=== PATIENT | female | born 1955 | race African-American/Black ===

== ENCOUNTER 2024-09-28 16:55 | Inpatient (IN) | payer OTHER ==
[2024-09-28 18:02] LABS: Absolute Eosinophils 0.1 K/uL (0-0.5); Absolute Lymphocytes (CBC) 2.2 K/uL (0.7-4.9); Absolute Monocytes 0.3 K/uL (0.1-1.3); Absolute Neutrophil 2.7 K/uL (1.8-8.0); Basophils % 0.8 % (0-1.3); Eosinophils % 1.8 % (0-4.4); Hematocrit 32.7 % (36.0-45.0); Hemoglobin 11.1 g/dL (12.0-15.0); MCH 28.6 pg (27.0-35.0); MCHC 33.9 g/dL (32.0-36.0); MCV 84.4 fL (80-100); Neutrophils % 51.4 % (41.7-73.7); Nucleated Red Blood Cells % 0.2 % (0-0); Platelets 209 thou/uL (152-406); RBC Red Blood Cell Count 3.87 M/uL (3.86-4.86); Red Cell Distribution Width 15.3 % (12.1-15.2)
[2024-09-28 18:23] LABS: Anion Gap 11.7 mEq/L (5.0-15.0); Magnesium 2.3 mg/dL (1.6-2.4); Potassium 5.7 mEq/L (3.5-5.1); Troponin High Sensitivity 18.3 pg/mL (<58.9)
--- NOTE | 2024-09-28 18:31 | ER ---
Nurse's Notes [facility] Name: Katie Loo Age: 69 yrs Sex: Female : 1955 Arrival Date: 09/28/2024 Time: 16:55 Bed 24 Private MD: Diagnosis: Hyperkalemia Presentation: 09/28 17:27 Chief complaint: Patient states: was told her potassium level was high, had blood drawn iw yesterday morning, sees Dr. Mae. Coronavirus screen: At this time, the client does not indicate any symptoms associated with coronavirus-19. Ebola Screen: No symptoms or risks identified at this time. Initial Sepsis Screen: Does the patient meet any 2 criteria? No. Patient's initial sepsis screen is negative. Does the patient have a suspected source of infection? No. Patient's initial sepsis screen is negative. Risk Assessment: Do you want to hurt yourself or someone else? Patient reports no desire to harm self or others. Onset of symptoms was September 28, 2024. 17:27 Method Of Arrival: Ambulatory iw 17:27 Acuity: YULIANA 3 iw Historical: - Allergies: 17:28 No Known Allergies; iw - PMHx: 17:28 Kidney disease; Hypertensive disorder; Diabetes mellitus; iw - PSHx: 17:28 None; iw - Immunization history:: Adult Immunizations up to date. - Infectious Disease History:: Denies. - Social history:: Smoking status: Patient denies any tobacco usage or history of. Screenin:44 [facility] ED Fall Risk Assessment (Adult) History of falling in the last 3 months, me1 including since admission No falls in past 3 months (0 pts) Confusion or Disorientation No (0 pts) Intoxicated or Sedated No (0 pts) Impaired Gait No (0 pts) Mobility Assist Device Used No (0 pt) Altered Elimination No (0 pt) Score/Fall Risk Level 0 - 2 = Low Risk Maintained a safe environment, Provided non-skid footwear, Hourly rounding (assess needs \T\ fall precautionary measures) done. Abuse screen: Denies threats or abuse. Nutritional screening: No deficits noted. Tuberculosis screening: No symptoms or risk factors identified. Assessment: 17:44 General: Appears in no apparent distress. well groomed, well developed, well nourished, me1 Behavior is calm, cooperative, appropriate for age, Reports was told her potassium level was high, had blood drawn yesterday morning, sees Dr. Mae. Pain: Denies pain. Neuro: Level of Consciousness is awake, alert, obeys commands, Oriented to person, place, time, situation, Appropriate for age. Cardiovascular: Patient's skin is warm and dry. Respiratory: Airway is patent Respiratory effort is even, unlabored, Respiratory pattern is regular, symmetrical. GI: No signs and/or symptoms were reported involving the gastrointestinal system. : No signs and/or symptoms were reported regarding the genitourinary system. EENT: No signs and/or symptoms were reported regarding the EENT system. Derm: Skin is intact, is healthy with good turgor, Skin is pink, warm \T\ dry. Musculoskeletal: No signs and/or symptoms reported regarding the musculoskeletal system. Vital Signs: 17:27 BP 134 / 63; Pulse 47; Resp 19; Temp 98; Pulse Ox 100% on R/A; Weight 74.84 kg; Height iw 5 ft. 4 in. ; Pain 0/10; 18:00 BP 122 / 55; Pulse 44; Resp 14; Pulse Ox 100% ; me1 19:00 BP 121 / 50; Pulse 47; Resp 16; Pulse Ox 100% ; me1 20:00 BP 125 / 55; Pulse 48; Resp 16; Pulse Ox 100% ; me1 20:57 BP 119 / 47; Pulse 49; Resp 15; Pulse Ox 100% ; me1 22:00 BP 121 / 51; Pulse 54; Resp 16; Pulse Ox 100% ; me1 17:27 Body Mass Index 28.32 (74.84 kg, 162.56 cm) iw 17:27 Pain Scale: Adult iw ED Course: 17:03 Patient arrived in ED. mr 17:23 An Davenport PA-C is PHCP. sb4 17:23 Ankush Warner MD is Attending Physician. sb4 17:28 Triage completed. iw 17:29 Arm band placed on. iw 17:33 Alondra Sweeney, ABEBE is Primary Nurse. me1 17:43 EKG done, by ED staff, reviewed by An Davenport PA-C. me1 17:44 Patient has correct armband on for positive identification. Bed in low position. Call me1 light in reach. Side rails up X2. Provided Education on: POC. Verbalized understanding.. Client placed on continuous cardiac and pulse oximetry monitoring. NIBP monitoring applied. monitor worker on. Pulse ox on. NIBP on. 17:44 No provider procedures requiring assistance completed. me1 17:54 Basic Metabolic Panel Sent. me1 17:54 Magnesium Sent. me1 17:55 CBC with Diff Sent. me1 17:55 Troponin HS Sent. me1 17:55 Initial lab(s) drawn, by me, sent to lab. Inserted saline lock: 22 gauge in right me1 antecubital area, using aseptic technique. 18:30 Nishant Roberto MD is Hospitalizing Provider. sb4 21:53 Patient admitted, IV remains in place. me1 Administered Medications: 18:57 Drug: NS 0.9% IV 1000 ml IV at 1 bolus Per protocol; to be given as a bolus over 60 me1 minutes Route: IV; Rate: 1 bolus; Site: right antecubital; 20:57 Follow up: Response: No adverse reaction; IV Status: Completed infusion; IV Intake: me1 1000ml 18:57 Drug: Calcium Gluconate IVPB 1 grams IVPB once over 60 mins; (mix in NS 100 mL) Route: me1 IVPB; Infused Over: 60 mins; Site: right antecubital; 19:38 Follow up: Response: No adverse reaction; IV Status: Completed infusion; IV Intake: [id number] 18:57 Drug: D50W IVP 50 ml IVP once; (1 amp) Route: IVP; Site: right antecubital; me1 19:23 Follow up: Response: No adverse reaction me1 18:57 Drug: Albuterol Inhalation 2.5 mg Inhalation once Route: Inhalation; me1 19:22 Follow up: Response: No adverse reaction me1 18:57 Drug: Kayexalate PO 30 grams PO once Route: PO; me1 19:23 Follow up: Response: No adverse reaction me1 18:58 Drug: Insulin Regular Human IVP 10 units IVP once {Co-Signature: me1 (ernesto Sweeney RN).} Route: IVP; Site: right antecubital; 19:22 Follow up: Response: No adverse reaction me1 Medication: 17:44 VIS not applicable for this client. me1 Intake: 19:38 IV: 50ml; Total: 50ml. me1 20:57 IV: 1000ml; Total: 1050ml. me1 Outcome: 18:30 Decision to Hospitalize by Provider. sb4 21:53 Admitted to ER Hold. Please see [facility] for further documentation. me1 21:53 Condition: stable 21:53 Instructed on the need for admit, 09/29 10:43 Patient left the ED. iw Signatures: Katie Márquez, Reg Reg mr Jesusita Stein RN RN Tennille Gaytan RN RN An Godinez, PA-C PA-C sb4 Alondra Sweeney RN RN me1 Alondra Sweeney RN me1 Corrections: (The following items were deleted from the chart) 09/28 17:44 17:27 Chief complaint: Patient states: was told her potassium level was high, had blood me1 drawn yesterday morning, sees Dr. Mae iw
--- NOTE | 2024-09-28 18:31 | EDPHYS ---
Physician Documentation [facility] Name: Katie Loo Age: 69 yrs Sex: Female : 1955 Arrival Date: 09/28/2024 Time: 16:55 Bed 24 Private MD: ED Physician Ankush Warner HPI: 09/28 18:34 This 69 yrs old Black Female presents to ER via Ambulatory with complaints of Abnormal sb4 Lab Results. 18:34 Patient states that she had outpatient labs done yesterday and was called today stating sb4 that she had elevated potassium levels and go to the ED. She is not sure what the levels were. She denies any history of hyperkalemia. States that she does have CKD and sees Dr. Mae. Denies any chest pain or any symptoms of discomfort at this time. Historical: - Allergies: 17:28 No Known Allergies; iw - PMHx: 17:28 Kidney disease; Hypertensive disorder; Diabetes mellitus; iw - PSHx: 17:28 None; iw - Immunization history:: Adult Immunizations up to date. - Infectious Disease History:: Denies. - Social history:: Smoking status: Patient denies any tobacco usage or history of. ROS: 18:34 Constitutional: Negative for fever, chills, and weight loss, sb4 18:34 All other systems are negative, Exam: 18:34 Constitutional: This is a well developed, well nourished patient who is awake, alert, sb4 and in no acute distress. Head/Face: Normocephalic, atraumatic. Eyes: Extra-ocular motions intact. Periorbital areas with no swelling, redness, or edema. ENT: Mucous membranes moist. Cardiovascular: Regular rate and rhythm with a normal S1 and S2. Respiratory: No increased work of breathing, no retractions or nasal flaring. Skin: Warm, dry with normal turgor. Normal color with no rashes, no lesions, and no evidence of cellulitis. Vital Signs: 17:27 BP 134 / 63; Pulse 47; Resp 19; Temp 98; Pulse Ox 100% on R/A; Weight 74.84 kg; Height iw 5 ft. 4 in. ; Pain 0/10; 18:00 BP 122 / 55; Pulse 44; Resp 14; Pulse Ox 100% ; me1 19:00 BP 121 / 50; Pulse 47; Resp 16; Pulse Ox 100% ; me1 20:00 BP 125 / 55; Pulse 48; Resp 16; Pulse Ox 100% ; me1 20:57 BP 119 / 47; Pulse 49; Resp 15; Pulse Ox 100% ; me1 22:00 BP 121 / 51; Pulse 54; Resp 16; Pulse Ox 100% ; me1 17:27 Body Mass Index 28.32 (74.84 kg, 162.56 cm) iw 17:27 Pain Scale: Adult iw MDM: 17:27 Medical Screening Exam initiated sb4 18:35 Data reviewed: vital signs, nurses notes, lab test result(s), EKG, radiologic studies, sb4 and as a result, I will admit patient. Consideration of Admission/Observation Patient was admitted/placed on observation. Management of patient was discussed with the following: Hospitalist: Dr. Roberto, Accepts patient to his service. Modular Home Crew Member: Dr. Mae, wants patient admitted for observation. Counseling: I had a detailed discussion with the patient and/or guardian regarding the historical points, exam findings, and any diagnostic results supporting the discharge/admit diagnosis, lab results, the need for further work-up and treatment in the hospital. 09/28 17:42 Order name: Basic Metabolic Panel; Complete Time: 18:25 sb4 09/28 17:42 Order name: CBC with Diff; Complete Time: 18:07 sb4 09/28 17:42 Order name: Troponin HS; Complete Time: 18:25 sb4 09/28 17:42 Order name: Magnesium; Complete Time: 18:25 sb4 09/28 18:47 Order name: Urinalysis w/ reflexes; Complete Time: 22:44 EDMS 09/28 18:47 Order name: Basic Metabolic Panel EDMS 09/28 18:47 Order name: Basic Metabolic Panel; Complete Time: 13:06 EDMS 09/28 18:47 Order name: Magnesium EDNH 09/28 18:47 Order name: Magnesium; Complete Time: 13:06 EDMS 09/28 22:18 Order name: Potassium; Complete Time: 22:19 EDMS 09/28 17:42 Order name: EKG; Complete Time: 17:43 sb4 09/28 18:47 Order name: CONS Physician Consult EDNH 09/28 17:42 Order name: Cardiac monitoring; Complete Time: 17:43 sb4 18 17:42 Order name: EKG - Nurse/Tech; Complete Time: 17:43 sb4 18 17:42 Order name: IV Saline Lock; Complete Time: 17:54 sb4 18 17:42 Order name: Labs collected and sent; Complete Time: 17:54 sb4 18 17:42 Order name: O2 Per Protocol; Complete Time: 17:43 sb4 18 17:42 Order name: O2 Sat Monitoring; Complete Time: 17:43 sb4 EC:58 Rate is 46 beats/min. Rhythm is regular, Sinus bradycardia with PACs. MD interval is sb4 normal at 144 msec. QRS interval is normal at 90 msec. QT interval is normal at 444 msec. No Q waves. T waves are Normal. No ST changes noted. Clinical impression: No evidence of ischemia. Interpreted by me. Reviewed by me. Administered Medications: 18:57 Drug: NS 0.9% IV 1000 ml IV at 1 bolus Per protocol; to be given as a bolus over 60 me1 minutes Route: IV; Rate: 1 bolus; Site: right antecubital; 20:57 Follow up: Response: No adverse reaction; IV Status: Completed infusion; IV Intake: me1 1000ml 18:57 Drug: Calcium Gluconate IVPB 1 grams IVPB once over 60 mins; (mix in NS 100 mL) Route: me1 IVPB; Infused Over: 60 mins; Site: right antecubital; 19:38 Follow up: Response: No adverse reaction; IV Status: Completed infusion; IV Intake: [id number] 18:57 Drug: D50W IVP 50 ml IVP once; (1 amp) Route: IVP; Site: right antecubital; me1 19:23 Follow up: Response: No adverse reaction me1 18:57 Drug: Albuterol Inhalation 2.5 mg Inhalation once Route: Inhalation; me1 19:22 Follow up: Response: No adverse reaction me1 18:57 Drug: Kayexalate PO 30 grams PO once Route: PO; me1 19:23 Follow up: Response: No adverse reaction me1 18:58 Drug: Insulin Regular Human IVP 10 units IVP once {Co-Signature: me1 (ernesto Sweeney RN).} Route: IVP; Site: right antecubital; 19:22 Follow up: Response: No adverse reaction me1 Disposition Summary: 09/28/24 18:30 Hospitalization Ordered Notes: Hospitalization Status: Observation sb4 Provider: Nishant Roberto sb4 Condition: Fair sb4 Problem: new sb4 Symptoms: are unchanged sb4 Bed/Room Type: Standard sb4 Location: Telemetry/MedSurg (observation)(09/29/24 09:42) Room Assignment: [facility](09/29/24 09:42) Diagnosis - Hyperkalemia sb4 Forms: - Medication Reconciliation Form sb4 - SBAR form sb4 - Leadership Thank You Letter sb4 Critical care time excluding procedures: 18:35 Critical care time: Bedside Care: 15 minutes, Consultation: 20 minutes. Total time: 35 sb4 minutes Signatures: Dispatcher [employer] EDMS Luann Young Irene, RN RN Briana Gusman RN RN Cayla Gomez RN RN Tennille Gaytan RN ABEBE Janine Pierre RN RN An Rodriges, PA-C PA-C sb4 Alondra Sweeney, RN RN me1 Alondra Sweeney RN me1 Corrections: (The following items were deleted from the chart) 21:39 18:30 Telemetry/MedSurg (observation) sb4 lg3 21:39 18:30 sb4 lg3 22:24 21:39 [facility] ER HOLD lg3 sp 22:24 21:39 ERHOLD- lg3 sp 22:33 22:24 217 sp cg 22:36 22:24 Telemetry/MedSurg (Inpatient) sp cg 22:36 22:33 cg cg 09/29 09:42 09/28 22:36 [facility] ER HOLD cg ss 09/29 09:42 09/28 22:36 ERHOLD- cg ss
[2024-09-28] MEDS ORDERED: ALBUTEROL 2.5 MG/3 ML NEB SOL ONE (18:39)
[2024-09-28] MEDS ORDERED: CALCIUM GLUCONATE 1 GM IVPB 1 GM/50 ML BAG IV ONE (18:39)
[2024-09-28] MEDS ORDERED: INSULIN REGULAR (HUMAN) 100 UNIT/ML ONE (18:39)
[2024-09-28] MEDS ORDERED: D50W 25 GM/50 ML SYRINGE IV ONE (18:40)
[2024-09-28] MEDS ORDERED: NA CHLORIDE 0.9% 1,000 ML ONE ×2 (18:40→21:22)
[2024-09-28] MEDS ORDERED: SOD POLYSTYREN SUL 15 GM/60 ML UCUP ONE (18:40)
[2024-09-28] MEDS ORDERED: ACETAMINOPHEN 325 MG TABLET PO PRN (18:41)
--- NOTE | 2024-09-28 18:46 | P.HP ---
Certification for Inpatient Patient admitted to: Observation With expected LOS: <2 Midnights Patient will require the following post-hospital care: None Practitioner: I am a practitioner with admitting privileges, knowledge of patient current condition, hospital course, and medical plan of care. 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 she was sent to the ED for eval and was found to have bradycardia and repeat BMP revealed potassium of 5.7 and cr of 2.5. she denies any diarrhea, n/v or other symptoms. she was on Amlodipine, Losartan and spironolactone for outpt management of hypertension. She was also on Farxiga for diabetes management. Home medications list reviewed: Yes Review of Systems 10-point ROS is otherwise unremarkable Physical Examination - Physical Exam General: Alert HEENT: Atraumatic, Normocephalic Neck: Supple Respiratory: Normal air movement Cardiovascular: Regular rate/rhythm Gastrointestinal: Soft and benign Musculoskeletal: No swelling Neurological: Normal speech, Normal strength at 5/5 x4 extr - Studies Laboratory Data (last 24 hrs) 09/28/24 09/28/24 17:53 17:53 WBC 5.30 Hgb 11.1 L Hct 32.7 L Plt Count 209 Sodium 138 Potassium 5.7 H BUN 54 H Creatinine 2.52 H Glucose 109 H Magnesium 2.3 Assessment and Plan - Plan PHUONG: she has use of losartan and spironolactone as possible confounders. she is deemed to be volume deplete. we will continue on NS infusion for hydration and follow labs. Nephrology has been consulted. Hyperkalemia: Potassium is elevated at 5.7. she has received medical management for her hyperkalemia and we think her use of aldactone and losartan is a possible confounder for her hyperkalemia. we will hold losartan and aldactone. we will follow daily labs and continue on telemetry monitoring. Nephrology on board. Hyperkalemia: We will continue amlodipine dose for blood pressure management. DM 2: we will follow blood glucose ACHS. Hyperkalemia: we will continue statin therapy. Prophylaxis: Hepari for DVT prophylaxis. Code status: Full code. Disposition: pending nephrology clearance and resolution of hyperkalemia and PHUONG. Discharge Plan: Home Plan to discharge in: 24 Hours - Advance Directives Does patient have a Living Will: No Does patient have a Durable POA for Healthcare: No - Code Status/Comfort Care Code Status: Full Code
[2024-09-28] MEDS: NA CHLORIDE 0.9% 1,000 ML IV SCH (19:00)
[2024-09-28 20:04] VITALS: BMI 28.3
[2024-09-28] MEDS: SODIUM ZIRCONIUM CYCLOSILICATE 10 GM/PKT PO ONE (21:00)
[2024-09-28] MEDS: SODIUM BICARB 325 MG TAB PO SCH (21:00)
[2024-09-28 22:44] LABS: Specific Gravity 1.014 (1.005-1.030); Urine Bilirubin NEGATIVE (Negative); Urine Blood Negative (Negative); Urine Clarity Clear (Clear); Urine Color Colorless (Yellow); Urine Glucose 3+ (Negative); Urine Ketones NEGATIVE (Negative); Urine Microscopic Reflex YN NO UMIC; Urine Nitrite NEGATIVE (Negative); Urine Protein NEGATIVE (Negative); Urine Urobilinogen Normal (Normal); Urine pH 5.5 (5.0-7.0)
[2024-09-28] MEDS: SODIUM BICARB 325 MG TAB PO ONE (23:30)
[2024-09-29] MEDS ORDERED: HEPARIN 5000 UNIT/ML 1 ML VIAL ONE ×2 (00:47→09:15)
[2024-09-29] MEDS: HEPARIN 5000 UNIT/ML 1 ML VIAL SQ SCH (00:54)
[2024-09-29 05:00] LABS: Anion Gap 10.4 mEq/L (5.0-15.0); Magnesium 2.1 mg/dL (1.6-2.4); Potassium 5.4 mEq/L (3.5-5.1)
[2024-09-29] MEDS: AMLODIPINE 10 MG TAB PO SCH (09:00)
[2024-09-29] MEDS ORDERED: AMLODIPINE 10 MG TAB ONE (09:15)
--- NOTE | 2024-09-29 12:28 | EKG ---
Test Date: 2024-09-28 Test Time: 17:39:12 Practice Business Asst: MEASUREMENT RESULTS: Intervals: Rate: 46 TN: 144 QRSD: 90 QT: 444 QTc: 388 [place]: P: 44 TN: 144 QRS: 27 T: 62 INTERPRETIVE STATEMENTS: Sinus bradycardia with premature atrial complexes Otherwise normal ECG No previous ECG available for comparison Electronically Signed On 09-29-24 12:25:27 CDT by Enoc Rossi
[2024-09-29] MEDS ORDERED: GLUCAGON 1 MG/VIAL IM PRN (12:42)
[2024-09-29] MEDS ORDERED: D10W 125 ML IV PRN (12:42)
[2024-09-29] MEDS: NA CHLORIDE 0.9% 1,000 ML IV SCH (13:14)
--- NOTE | 2024-09-29 15:46 | CON ---
Date of Consultation: 09/29/2024 Reason For Consultation: Elevated BUN and creatinine, hyperkalemia. 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 Followed up with me in the office with valentin mao creatinine 1.8 and GFR of 29. Patient last seen in the office back in June. The patient came on her regular lab for the office for the followup, found to have potassium 6.5 with elevation in cr eatinine 2.5. For that reason, we directed the patient to the hospital. The patient's last admissio n, was started on Farxiga. Apparently, patient still weak for that reason. The patient denied any n ausea, any vomiting, any diarrhea. In the hospital, the patient was started on gentle hydration. Cr eatinine trended down from 2.5 to 2.1. Hyperkalemia started improving. Past Medical History: Include: 1. Diabetes. 2. Complicated with neuropathy and nephropathy. 3. Hypertension. 4. Hyperlipidemia. 5. Chronic kidney disease stage 3B, small-sized kidney, proteinuric, nonnephrotic, secondary to diabe lyndsay and hypertension, nephrosclerosis. Baseline creatinine 1.8 and GFR 29. Family History: Positive for diabetes and kidney disease. Allergies: NO KNOWN DRUGS ALLERGY. Social History: Denied smoking. Denied drinking. Denied drugs abuse. Review of Systems: Head and Neck: No red eye. No ear pain. GI: No nausea. No vomiting. : No polyuria. No dysuria. No hematuria. WASH OPERATOR: No vaginal discharge. Respiratory: No shortness of breath. Cardiovascular: No chest pain. Endocrine: No polydipsia. Skin: No rash. Neuro: Has neuropathy. Musculoskeletal: Generalized fatigue. Home Medications: Include hydralazine 50 mg, pravastatin, losartan, hydrochlorothiazide, metformin 5 00 b.i.d. Physical Examination: Vital Signs: When I saw the patient, blood pressure 116/44, pulse of 44. Chest: Clear to auscultation. Heart: S1, S2. Regular. Abdomen: Soft. Mild tenderness. No guarding or rebound. Extremities: No edema. Neurologic: Alert. No focality. Laboratory Data: Yesterday, potassium 5.7, creatinine 2.5, GFR of 20. Today, sodium 144, potassium 5.4, bicarb 21, BUN 49, creatinine 2.1, calcium 8.6, hemoglobin 11.2. Assessment And Plan: 1. Acute kidney injury secondary to prerenal, secondary to gluco diurese, secondary to Farxiga, super imposed with hydrochlorothiazide and ARB, complicated with hyperkalemia, on the recovery, getting vivi ser to her baseline. I am going to resume IV fluid. I agree with holding ARB and hydrochlorothiazid e for the time being. We will hold metformin given the presence of the acidosis. Keep holding Farxi ga too and we will monitor the patient. 2. Hyperkalemia secondary to renal failure superimposed with ARB. Keep holding losartan and we will start hydration. No need for binder for the time being. 3. Acidosis, multifactorial, secondary to renal failure superimposed with metformin use. I agree wit h holding metformin. We will start the patient on gentle hydration. We will send for urine electrol yte to rule out any RTA. 4. Diabetes, as by Primary. Hold metformin. Hold Farxiga. 5. Hypertension with the presence of acute kidney injury. Hold losartan and hydrochlorothiazide. Thank you, Dr. Roberto, for allowing us to participate in the care of your patient. Time spent examining the patient [id number], reviewing data, lab and radiology, placing order, disc ussing the case with the patient, discussing the case with the team automobile assembler including hospitalist and nursing staff more than 75 minutes. YUVAL/TRICIA Voice ID: [id number] Report ID: [id number]
[2024-09-29] MEDS: INSULIN REGULAR (HUMAN) 100 UNIT/ML SQ SCH (16:30)
[2024-09-29] MEDS: Empagliflozin [Jardiance] 10 MG Tablet *PT OWN MED PO SCH (18:15)
[2024-09-29] MEDS: ATORVASTATIN 10 MG TAB PO SCH (22:08)
[2024-09-29 23:48] VITALS: O2SAT 98
[2024-09-30 05:39] LABS: Absolute Eosinophils 0.1 K/uL (0-0.5); Absolute Lymphocytes (CBC) 1.7 K/uL (0.7-4.9); Absolute Monocytes 0.3 K/uL (0.1-1.3); Absolute Neutrophil 2.5 K/uL (1.8-8.0); Basophils % 0.8 % (0-1.3); Eosinophils % 2.2 % (0-4.4); Hematocrit 29.7 % (36.0-45.0); Hemoglobin 9.8 g/dL (12.0-15.0); Lymphocytes % 36.3 % (15.3-44.8); MCH 28.2 pg (27.0-35.0); MCHC 33.1 g/dL (32.0-36.0); MCV 85.2 fL (80-100); MPV 7.3 fL (7.6-11.3); Monocytes % 6.5 % (3.3-12.3); Neutrophils % 54.2 % (41.7-73.7); Nucleated Red Blood Cells % 0.1 % (0-0); Platelets 204 thou/uL (152-406); RBC Red Blood Cell Count 3.48 M/uL (3.86-4.86); Red Cell Distribution Width 15.2 % (12.1-15.2)
[2024-09-30 06:19] LABS: ALT/SGPT 18 U/L (13-56); Albumin 2.9 g/dL (3.4-5.0); Albumin/Globulin Ratio 0.8 (1.1-1.8); Alkaline Phosphatase 79 U/L (45-117); BUN Blood Urea Nitrogen 47 mg/dL (7-18); Bicarbonate 21 mEq/L (21-32); Bilirubin Total 0.6 mg/dL (0.2-1.0); C-Reactive Protein 8.96 mg/L (<3.00); Ferritin 84.8 ng/mL (8-252); Globulin 3.7 g/dL (2.3-3.5); Glomerular Filtration Rate 27 ml/min (=/>90); Glucose Level 120 mg/dL (74-106); Magnesium 1.8 mg/dL (1.6-2.4); NT PRO-BNP 77 pg/mL (<125); Phosphorus 3.7 mg/dL (2.5-4.9); Protein, Total 6.6 g/dL (6.4-8.2); Sodium Level 143 mEq/L (136-145); Troponin High Sensitivity 22.5 pg/mL (<58.9)
[2024-09-30 06:21] LABS: AST/SGOT < 10 U/L (15-37)
--- NOTE | 2024-09-30 08:29 | RAD REPORT ---
EXAMINATION: US RETROPERITONEUM CLINICAL INDICATION: [facility] MAIN PHUONG TECHNIQUE: Real-time ultrasonography of the retroperitoneum was performed. COMPARISON: No prior exam. FINDINGS: RIGHT KIDNEY: Right renal length measurement: 8.5 cm. Normal in echogenicity and size. No calculus, s olid mass or hydronephrosis. LEFT KIDNEY: Left renal length measurement: 8.6 cm. Normal in echogenicity and size. No calculus, cecilia id mass or hydronephrosis. Bilateral cortical thinning. URINARY BLADDER: Normal. ADDITIONAL FINDINGS: None. IMPRESSION: No acute findings. Bilateral renal cortical thinning could reflect medical renal disease..
--- NOTE | 2024-09-30 08:30 | RAD REPORT ---
EXAMINATION: ONE VIEW CHEST XR CLINICAL INDICATION: Female, 69 years old.,pneumonia TECHNIQUE: Frontal chest projection is submitted. Examination is limited by patient positioning and t echnique. COMPARISON: No prior exam. FINDINGS: The lungs are well inflated and clear. No pneumothorax or sizable effusion. The heart is normal in s ize. Mediastinal contours are unremarkable. IMPRESSION: No acute intrathoracic abnormalities.
[2024-09-30] MEDS ORDERED: HOME MED 1 EA UNK (Pravastatin Sodium [Pravastatin Sodium] 20 MG Tablet) PO SCH (09:00)
[2024-09-30 12:05] VITALS: BP 127/60; TEMP 97.8
--- NOTE | 2024-09-30 14:24 | ECHO ---
HEIGHT: 5 ft 4 in WEIGHT: 164 lb 15.903 oz DATE OF STUDY: 09/30/[address]: Jaime Mooyd MD 2-DIMENSIONAL: YES M.MODE: YES DOPPLER: YES COLOR FLOW: YES TDS: YES PORTABLE: YES DEFINITY: BUBBLE STUDY: DIAGNOSIS: ACUTE CONGESTIVE HEART FAILURE CARDIAC HISTORY: CATHERIZATION: NO SURGERY: NO PROSTHETIC VALVE: NO PACEMAKER: NO MEASUREMENTS (cm) DIASTOLIC (NORMALS) SYSTOLIC (NORMALS) IVSd 1.1 (0.6-1.2) LA Diam 2.6 (1.9-4.0) LVEF 60-65% LVIDd 4.7 (3.5-5.7) LVIDs 3.0 (2.0-3.5) %FS 37% LVPWd 1.1 (0.6-1.2) Ao Diam 2.3 (2.0-3.7) 2 DIMENSIONAL ASSESSMENT: RIGHT ATRIUM: NORMAL LEFT ATRIUM: NORMAL RIGHT VENTRICLE: NORMAL LEFT VENTRICLE: NORMAL TRICUSPID VALVE: INSUFFICIENT TRICUSPID REGURGITATION MITRAL VALVE: NORMAL PULMONIC VALVE: NORMAL AORTIC VALVE: NORMAL PERICARDIAL EFFUSION: NONE AORTIC ROOT: NORMAL LEFT VENTRICULAR WALL MOTION: NORMAL DOPPLER/COLOR FLOW: GRADE II DIASTOLIC DYSFUNCTION COMMENTS: 1. NORMAL LEFT VENTRICULAR SYSTOLIC FUNCTION, EJECTION FRACTION 60-65%, NORMAL WALL MOTION 2. GRADE II DIASTOLIC DYSFUNCTION TECHNOLOGIST: ANTONINA RAMÍREZ
--- NOTE | 2024-09-30 19:01 | PN ---
Date of Progress Note: 09/30/2024 Subjective: The patient was admitted to the hospital with acute kidney injury, hyperkalemia. The patient was hydrated. Spironolactone was discontinued. The patient's kidney function back close to baseline. Hyperkalemia resolved. The patient is feeling better. The patient had echocardiogram with ejection fraction of 65%. Physical Examination: Vital Signs: When I saw the patient, blood pressure 127/60, pulse of 48, afebrile. Chest: Clear to auscultation. Heart: S1, S2. Systolic murmur. Abdomen: Soft, nontender. Extremities: No edema. Neurologic: Alert. No focality. Laboratory Data: Hemoglobin 9.8. Sodium 143, potassium 5, bicarb 21, BUN 47, creatinine 1.9, calcium 8.4, phosphorus 3.7. Iron saturation of 35. TSH 1.6. Ferritin of 84. Current Medications: The patient on, include Rayaldee, amlodipine, pravastatin, sodium bicarb. Assessment And Plan: 1. Acute kidney injury secondary to prerenal, superimposed with spironolactone, recovered, resolved. 2. Hyperkalemia secondary to renal failure and spironolactone, recovered, resolved. 3. Acidosis. Continue sodium bicarb. 4. Chronic kidney disease, stage IIIB with acute kidney injury as above. 5. Congestive heart failure, currently normal volume. Discontinue spironolactone. time spent examining the patient [id number] reviewing data lab and the radiology placing order discussing the case with the patient discussing the case with the steam table attendant including hospitalist and nursing staff more than 55-minute SHAZIA Voice ID: [id number] Report ID: [id number] JOSI
[2024-10-05 05:10] LABS: PRA,LC/MS/MS 3.84 ng/mL/h (0.25-5.82)
--- NOTE | 2024-10-20 15:14 | P.PN ---
Date of Service: 09/29/24 Subjective Patient continues to improve; renal function much better. Physical Examination - Physical Exam Vitals: reviewed General: Alert HEENT: WNL Respiratory: Normal air movement Cardiovascular: Regular rate/rhythm Gastrointestinal: Soft and benign Musculoskeletal: No swelling Neurological: Normal speech, Normal strength at 5/5 x4 extr Assessment and Plan - Assessment/Plan 1. PHUONG: we will continue on NS infusion for hydration and follow labs. Nephrology has been consulted. Holding aldactone 2. Hyperkalemia: Potassium is elevated at 5.7. she has received medical management for her hyperkalemia and we think her use of aldactone and losartan is a possible confounder for her hyperkalemia. we will hold losartan and aldactone. we will follow daily labs and continue on telemetry monitoring. Nephrology on board. 3. Hypertension: We will continue amlodipine dose for blood pressure management. Strict BP control 4. DM 2: we will follow blood glucose ACHS. 5. Hyperlipidemia: we will continue statin therapy. Prophylaxis: Hepari for DVT prophylaxis. Code status: Full code. Disposition: pending nephrology clearance and resolution of hyperkalemia and PHUONG. Discharge Plan: Home Plan to discharge in: 24 Hours - Advance Directives Does patient have a Living Will: No Does patient have a Durable POA for Healthcare: No - Code Status/Comfort Care Code Status: Full Code
--- NOTE | 2024-10-20 15:16 | P.DS ---
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 she was sent to the ED for eval and was found to have bra dycardia and repeat BMP revealed potassium of 5.7 and cr of 2.5. She denies any diarrhea, n/v or other symptoms. She was on Amlodipine, Losartan and spironolactone for outpt management of hypertension. She was also on Farxiga for diabetes management. Hospital Course: Patient's blood pressure is much better controlled. Patient was hydrated and potassium level is stable. Will hold off on Aldactone and adjust BP meds to IV. Echocardiogram revealed diastolic dysfunction. Renal ultrasound with medical renal disease. At this time, patient is stable for discharge home. Vital Signs/Physical Exam: Temp Pulse Resp BP Pulse Ox 97.8 F 48 L 16 127/60 99 09/30/24 12:00 09/30/24 12:00 09/30/24 12:00 09/30/24 12:00 09/30/24 12:00 General: Alert, In no apparent distress, Oriented x3 Laboratory Data at Discharge: WBC 4.60 thou/uL (4.3-10.9) 09/30/24 05:12 Hgb 9.8 g/dL (12.0-15.0) L 09/30/24 05:12 Hct 29.7 % (36.0-45.0) L 09/30/24 05:12 Plt Count 204 thou/uL (152-406) 09/30/24 05:12 Sodium 143 mEq/L (136-145) 09/30/24 05:12 Potassium 5.0 mEq/L (3.5-5.1) 09/30/24 05:12 BUN 47 mg/dL (7-18) H 09/30/24 05:12 Creatinine 1.96 mg/dL (0.55-1.02) H 09/30/24 05:12 Glucose 120 mg/dL (74-106) H 09/30/24 05:12 Phosphorus 3.7 mg/dL (2.5-4.9) 09/30/24 05:12 Magnesium 1.8 mg/dL (1.6-2.4) 09/30/24 05:12 Total Bilirubin 0.6 mg/dL (0.2-1.0) 09/30/24 05:12 AST < 10 U/L (15-37) L 09/30/24 05:12 ALT 18 U/L (13-56) 09/30/24 05:12 Alkaline Phosphatase 79 U/L (45-117) 09/30/24 05:12 Home Medications: Amlodipine Bes/Olmesartan Med [Amlodipine-Olmesartan 5-40 mg] 1 each PO DAILY 09/29/24 Calcifediol [Rayaldee] 30 mcg PO DAILY 09/29/24 Empagliflozin [Jardiance] 10 mg PO 1X 09/29/24 Pravastatin Sodium 20 mg PO DAILY 09/29/24 Na Bicarb Tab [Sodium Bicarb 325 MG Tab*] 650 mg PO BID #60 tab 09/30/24 New Medications: Na Bicarb Tab [Sodium Bicarb 325 MG Tab*] 650 mg PO BID #60 tab Physician Discharge Instructions: -DC IV and DC home -Follow-up with PCP in 1 to 2 weeks -Follow-up with nephrology in 1 to 2 weeks -Please call Dr. Moody at [phone] if any questions regarding hospital stay -Please call nursing station at [phone] if any nursing or medication questions -Return to the emergency room if symptoms worsen Diet: Renal Activity: Fall precautions Followup: Rolanda Mae MD [ACTIVE - CAN ADMIT] - 1-2 Weeks Shea Amado MD [Primary Care Provider] - 1-2 Weeks Time spent managing pt's care (in minutes): 35
== END 2024-09-30 14:04 | disposition home or self-care (01) | DRG 682 ==
LOC: ER 16:55 → ERHOLD 18:41 → 2ND 09-29 09:55 → OBSVTOIN 09-29 16:46
PROVIDERS: ADMIT Internal Medicine Nephrology; ATTEND Hospitalist
DX: N17.9 Acute kidney failure, unspecified (principal); I50.31 Acute diastolic (congestive) heart failure; I13.0 Hypertensive heart and chronic kidney disease with heart failure and stage 1 through stage 4 chronic kidney disease, or unspecified chronic kidney disease; E87.20 Acidosis, unspecified; E87.5 Hyperkalemia; N18.32 Chronic kidney disease, stage 3b; E11.22 Type 2 diabetes mellitus with diabetic chronic kidney disease; E11.40 Type 2 diabetes mellitus with diabetic neuropathy, unspecified; E78.5 Hyperlipidemia, unspecified; Z79.84 Long term (current) use of oral hypoglycemic drugs; Z79.899 Other long term (current) drug therapy
CPT/HCPCS: 36415; 71045; 76770; 80048; 80053; 81003; 82533; 82607; 82728; 82947; 83540; 83735; 83880; 84100; 84132; 84244; 84439; 84443; 84484; 85025; 86140; 93005; 93306; 96361; 96365; 96375; 99285; G0378; J0612; J1644; J1815; J7030; J7613